=== PATIENT | female | born 1950 | race Caucasian/White ===

== ENCOUNTER 2022-10-24 08:08 | Emergency (ER) | payer MEDICARE, MEDICAID ==
[~2022-10-24] VITALS: Ht 154.9 cm; Wt 80.0 kg
[~2022-10-24 08:08] MED LIST: ALBU108A5 INH; ALBUAER3 INH; ATOR10TA52 PO; AZIT500T66 PO; FLU220IH INH; LEV25T PO; LOSA100T58 PO; METF-372 PO; METH4PAK PO; SITA100T7 PO
[2022-10-24 08:40] VITALS: BP 144/88; PULSE 106; RESP 20; TEMP 97.7; O2SAT 97
[2022-10-24] MEDS ORDERED: DexAMETHasone SOD PHOS 10MG/1ML VIAL INJ IM ONE (09:00)
[2022-10-24] MEDS ORDERED: HYDROcodone-ACET 5/325MG TAB PO ONE (09:00)
[2022-10-24] MEDS ORDERED: TRAM50TA2 PO ×2 (09:09→09:10)
[2022-10-25] MEDS ORDERED: TRAM50TA2 PO (19:30)
== END 2022-10-24 09:24 | disposition home or self-care (01) ==
LOC: ER 08:08
DX: M06.862 Other specified rheumatoid arthritis, left knee (principal); M06.861 Other specified rheumatoid arthritis, right knee; E11.9 Type 2 diabetes mellitus without complications; E78.5 Hyperlipidemia, unspecified; I10 Essential (primary) hypertension; J45.909 Unspecified asthma, uncomplicated
CPT/HCPCS: 96372; 99283; J1100

== ENCOUNTER 2022-10-26 07:29 | Inpatient (IN) | payer MEDICARE, MEDICAID ==
[2022-10-26] VITALS (9 sets, daily range): BP systolic 120–147; BP diastolic 62–78; PULSE 74–106; RESP 16–26; TEMP 98.4–98.9; O2SAT 90–99
[~2022-10-26] VITALS: Ht 154.9 cm; Wt 81.7 kg
[~2022-10-26 07:29] MED LIST changes: +TRAM50TA2 PO
[2022-10-26] MEDS ORDERED: ACETAMINOPHEN 325 MG TAB PO ONE (08:00)
[2022-10-26] MEDS ORDERED: DexAMETHasone SOD PHOS 10MG/1ML VIAL INJ IV ONE (08:00)
[2022-10-26 08:09] LABS: Basophils # (auto) 0.2 10 ^3/uL (0-0.2); Basophils % (auto) 0.9 % (0.0-2.0); Eosinophils # (auto) 0.4 10 ^3/uL (0-0.8); Eosinophils % (auto) 2.2 % (0.0-7.0); Hematocrit 42.1 % (36.0-46.0); Hemoglobin 13.7 g/dL (12.2-16.2); Lymphocytes # (auto) 2.2 10 ^3/uL (0.4-5.4); Lymphocytes % (auto) 11.5 % (10.0-50.0); Mean Corpuscular Hemoglobin 28.1 pg (28.0-32.0); Mean Corpuscular Hgb Conc. 32.6 g/dL (32.0-36.0); Mean Corpuscular Volume 86.2 fL (80.0-100.0); Monocytes % (auto) 5.5 % (0.0-12.0); Neutrophils # (auto) 14.9 10 ^3/uL (1.6-8.6); Neutrophils % (auto) 79.9 % (37.0-80.0); Red Blood Cells 4.88 10^6/uL (4.0-5.20); Red Cell Distribution Width 15.3 % (11.8-14.3); White Blood Cell 18.7 10^3/uL (4.4-10.8)
[2022-10-26 08:25] LABS: Albumin 3.1 g/dL (3.4-5.0); Potassium 3.6 mmol/L (3.5-5.1)
[2022-10-26 08:29] LABS: BUN/Creatinine Ratio 17.6 (10.0-20.0); Bilirubin, Total 1.1 mg/dL (0.2-1.0); Total Protein 7.4 g/dL (6.4-8.2)
[2022-10-26 09:13] LABS: Urine Bacteria NONE SEEN /hpf (None Seen); Urine Blood Negative /uL (Negative); Urine Hyaline Cast FEW /lpf (0 - 2); Urine Specific Gravity 1.023 (1.001-1.035); Urine WBC 68 /hpf (0 - 5)
[2022-10-26] MEDS ORDERED: IPRATROPIUM BROM 0.5 MG/2.5ML INH SOL NEB PRN (10:45)
[2022-10-26] MEDS ORDERED: DEXTROSE (50%) 50ML SYRG IV PRN (10:45)
[2022-10-26] MEDS ORDERED: DOCUSATE SOD 100 MG CAP PO PRN (10:45)
[2022-10-26] MEDS ORDERED: ONDANSETRON HCL 4 MG/2 ML VIAL IV PRN (10:45)
[2022-10-26] MEDS: SODIUM CHLORIDE 0.9% 1,000 ML IV SCH ×2 (11:20→21:33)
[2022-10-26] MEDS: ENOXAPARIN SOD 40 MG/0.4 ML SYRINGE SC SCH (11:21)
[2022-10-26] MEDS: LEVALBUTEROL HCL 1.25 MG/3 ML NEB NEB SCH ×2 (11:32→19:21)
[2022-10-26] MEDS: ACCU-CHEK COMFORT CURVE STRIP VI SCH ×3 (11:42→21:35)
[2022-10-26] MEDS: InsuLIN REG 1unit/0.01ml Soln (100units/ml) SC SCH ×3 (11:43→21:37)
[2022-10-26] MEDS ORDERED: DexAMETHasone SOD PHOS 4 MG/1ML SDV INJ IV SCH (12:00)
[2022-10-26] MEDS: MORPHINE SULFATE INJ 2 MG/ml SYRG IV PRN ×2 (12:06→21:34)
[2022-10-26 13:32] LABS: Creatinine, Urine 194 mg/dL (30.0-125.0); Sodium Urine 24 mmol/L (40-220)
[2022-10-26] MEDS: IPRATROPIUM BROM 0.5 MG/2.5ML INH SOL NEB SCH (19:21)
[2022-10-26] MEDS: ACETYLCYSTEINE 20%(200MG/ML) SOL 4ML NEB SCH (19:22)
[2022-10-26] MEDS ORDERED: guaiFENesin-DM 100/10mg/5ml SYR PO PRN (20:45)
[2022-10-26] MEDS: ATORVASTATIN 20 MG TAB PO SCH (21:34)
[2022-10-27] VITALS (14 sets, daily range): BP systolic 118–155; BP diastolic 55–88; PULSE 65–92; RESP 16–20; TEMP 97.4–98.6; O2SAT 89–100
[2022-10-27] MEDS: IPRATROPIUM BROM 0.5 MG/2.5ML INH SOL NEB SCH ×4 (00:29→18:00)
[2022-10-27] MEDS: ACETYLCYSTEINE 20%(200MG/ML) SOL 4ML NEB SCH ×4 (00:29→18:00)
[2022-10-27] MEDS: LEVALBUTEROL HCL 1.25 MG/3 ML NEB NEB SCH ×4 (00:29→18:00)
[2022-10-27] MEDS: SODIUM CHLORIDE 0.9% 1,000 ML IV SCH ×4 (04:07→22:52)
[2022-10-27] MEDS: ACCU-CHEK COMFORT CURVE STRIP VI SCH ×4 (05:58→21:10)
[2022-10-27] MEDS: LEVOTHYROXINE SODIUM 25 MCG TAB PO SCH (06:05)
[2022-10-27] MEDS: InsuLIN REG 1unit/0.01ml Soln (100units/ml) SC SCH ×4 (06:06→21:25)
[2022-10-27] MEDS: MORPHINE SULFATE INJ 2 MG/ml SYRG IV PRN ×2 (06:08→21:11)
[2022-10-27 06:10] LABS: Basophils # (auto) 0 10 ^3/uL (0-0.2); Basophils % (auto) 0.1 % (0.0-2.0); Eosinophils # (auto) 0 10 ^3/uL (0-0.8); Hematocrit 36.3 % (36.0-46.0); Hemoglobin 11.8 g/dL (12.2-16.2); Lymphocytes # (auto) 2.6 10 ^3/uL (0.4-5.4); Lymphocytes % (auto) 16.3 % (10.0-50.0); Mean Corpuscular Hemoglobin 28.4 pg (28.0-32.0); Mean Corpuscular Hgb Conc. 32.6 g/dL (32.0-36.0); Monocytes # (auto) 0.9 10 ^3/uL (0-1.3); Monocytes % (auto) 5.6 % (0.0-12.0); Neutrophils # (auto) 12.5 10 ^3/uL (1.6-8.6); Red Blood Cells 4.17 10^6/uL (4.0-5.20); Red Cell Distribution Width 15.5 % (11.8-14.3)
[2022-10-27 06:36] LABS: Albumin 2.5 g/dL (3.4-5.0); Calcium 8.3 mg/dL (8.5-10.1); Potassium 4.1 mmol/L (3.5-5.1)
[2022-10-27 06:40] LABS: BUN/Creatinine Ratio 20.2 (10.0-20.0); Bilirubin, Total 0.5 mg/dL (0.2-1.0)
[2022-10-27] MEDS: ENOXAPARIN SOD 40 MG/0.4 ML SYRINGE SC SCH (11:26)
[2022-10-27] MEDS: LOSARTAN POTASSIUM 50 MG TAB PO SCH (11:27)
[2022-10-27] MEDS: DexAMETHasone SOD PHOS 4 MG/1ML SDV INJ IV SCH (11:27)
[2022-10-27] MEDS: PANTOPRAZOLE 40 MG/10 ML VIAL INJ IV SCH (11:28)
[2022-10-27] MEDS ORDERED: cefTRIAXone 1GM/50ML D5W 50 ML IV ONE (12:00)
[2022-10-27] MEDS: ATORVASTATIN 20 MG TAB PO SCH (21:10)
[2022-10-28] VITALS (15 sets, daily range): BP systolic 135–150; BP diastolic 63–83; PULSE 67–106; RESP 14–20; TEMP 97.6–98.6; O2SAT 89–99
[2022-10-28] MEDS: LEVALBUTEROL HCL 1.25 MG/3 ML NEB NEB SCH ×5 (01:39→23:14)
[2022-10-28] MEDS: ACETYLCYSTEINE 20%(200MG/ML) SOL 4ML NEB SCH ×5 (01:39→23:14)
[2022-10-28] MEDS: IPRATROPIUM BROM 0.5 MG/2.5ML INH SOL NEB SCH ×5 (01:39→23:14)
[2022-10-28] MEDS: LEVOTHYROXINE SODIUM 25 MCG TAB PO SCH (06:03)
[2022-10-28] MEDS: ACCU-CHEK COMFORT CURVE STRIP VI SCH ×4 (06:04→21:12)
[2022-10-28] MEDS: InsuLIN REG 1unit/0.01ml Soln (100units/ml) SC SCH ×4 (06:09→21:19)
[2022-10-28] MEDS: cefTRIAXone 1GM/50ML D5W 50 ML IV SCH (09:18)
[2022-10-28] MEDS: DexAMETHasone SOD PHOS 4 MG/1ML SDV INJ IV SCH (09:19)
[2022-10-28] MEDS: SODIUM CHLORIDE 0.9% 1,000 ML IV SCH ×3 (09:19→22:34)
[2022-10-28] MEDS: ENOXAPARIN SOD 40 MG/0.4 ML SYRINGE SC SCH (09:19)
[2022-10-28] MEDS: LOSARTAN POTASSIUM 50 MG TAB PO SCH (09:19)
[2022-10-28] MEDS: PANTOPRAZOLE 40 MG/10 ML VIAL INJ IV SCH (09:20)
[2022-10-28] MEDS ORDERED: ZOLPIDEM TARTRATE 5 MG TAB PO PRN (12:15)
[2022-10-28] MEDS: ATORVASTATIN 20 MG TAB PO SCH (21:11)
[2022-10-29] VITALS (10 sets, daily range): BP systolic 148–163; BP diastolic 71–90; PULSE 53–86; RESP 18; TEMP 97.2–98.5; O2SAT 93–100
[2022-10-29] MEDS: InsuLIN REG 1unit/0.01ml Soln (100units/ml) SC SCH ×2 (06:02→11:43)
[2022-10-29] MEDS: SODIUM CHLORIDE 0.9% 1,000 ML IV SCH (06:21)
[2022-10-29] MEDS: ACCU-CHEK COMFORT CURVE STRIP VI SCH ×2 (06:21→11:43)
[2022-10-29] MEDS: LEVOTHYROXINE SODIUM 25 MCG TAB PO SCH (06:21)
[2022-10-29] MEDS: IPRATROPIUM BROM 0.5 MG/2.5ML INH SOL NEB SCH ×2 (06:47→11:58)
[2022-10-29] MEDS: LEVALBUTEROL HCL 1.25 MG/3 ML NEB NEB SCH ×2 (06:47→11:58)
[2022-10-29] MEDS: ACETYLCYSTEINE 20%(200MG/ML) SOL 4ML NEB SCH ×2 (06:48→11:58)
[2022-10-29] MEDS: DexAMETHasone SOD PHOS 4 MG/1ML SDV INJ IV SCH (08:53)
[2022-10-29] MEDS: cefTRIAXone 1GM/50ML D5W 50 ML IV SCH (08:53)
[2022-10-29] MEDS: ENOXAPARIN SOD 40 MG/0.4 ML SYRINGE SC SCH (08:54)
[2022-10-29] MEDS: LOSARTAN POTASSIUM 50 MG TAB PO SCH (08:55)
[2022-10-29] MEDS ORDERED: METH4PAK PO (11:12)
[2022-10-29] MEDS ORDERED: HYDR-4902 PO (11:12)
[2022-10-29] MEDS ORDERED: LEVO500T91 PO (11:12)
== END 2022-10-29 14:17 | disposition home or self-care (01) | DRG 720 ==
LOC: ER 07:29 → OVERFLOW 10:41 → CENTRAL 12:45
PROVIDERS: ADMIT Family Medicine; ATTEND Family Medicine
DX: A41.9 Sepsis, unspecified organism (principal); J96.01 Acute respiratory failure with hypoxia; J44.1 Chronic obstructive pulmonary disease with (acute) exacerbation; J45.901 Unspecified asthma with (acute) exacerbation; I24.9 Acute ischemic heart disease, unspecified; N30.00 Acute cystitis without hematuria; E11.65 Type 2 diabetes mellitus with hyperglycemia; I10 Essential (primary) hypertension; E78.5 Hyperlipidemia, unspecified; E03.9 Hypothyroidism, unspecified; M06.9 Rheumatoid arthritis, unspecified; J98.11 Atelectasis; Z83.3 Family history of diabetes mellitus; Z85.3 Personal history of malignant neoplasm of breast; Z90.12 Acquired absence of left breast and nipple; Z82.49 Family history of ischemic heart disease and other diseases of the circulatory system; Z79.84 Long term (current) use of oral hypoglycemic drugs; Z79.51 Long term (current) use of inhaled steroids; Z82.5 Family history of asthma and other chronic lower respiratory diseases; Z82.61 Family history of arthritis
CPT/HCPCS: 36415; 71045; 80053; 81001; 82570; 82962; 83605; 83735; 84300; 84484; 85025; 86141; 87040; 87086; 93005; 94640; 97110; 97116; 97163; 97530; C9113; G0378; J0696; J1100; J1815; J2405

== ENCOUNTER 2022-11-15 08:29 | Emergency (ER) | payer MEDICARE, MEDICAID ==
[~2022-11-15] VITALS: Ht 154.9 cm; Wt 69.1 kg
[~2022-11-15 08:29] MED LIST changes: +HYDR-4902 PO; +LEVO500T91 PO
[2022-11-15 08:56] VITALS: BP 101/57; PULSE 105; RESP 18; TEMP 97.7; O2SAT 94
[2022-11-15] MEDS ORDERED: methylPREDNISolone SOD SUCC 40 MG/ML VL IM ONE (09:00)
[2022-11-15] MEDS ORDERED: KETOROLAC TROMETH 30 MG/ML 1ML VIAL IM ONE (09:00)
[2022-11-15] MEDS ORDERED: ONDANSETRON ODT 4 MG TAB PO ONE (09:15)
[2022-11-15] MEDS ORDERED: NAPR-746 PO (09:45)
[2022-11-15] MEDS ORDERED: PRED20TA2 PO (09:45)
== END 2022-11-15 09:52 | disposition home or self-care (01) ==
LOC: ER 08:29
DX: M06.9 Rheumatoid arthritis, unspecified (principal); M25.561 Pain in right knee; M79.642 Pain in left hand; M79.641 Pain in right hand; J45.909 Unspecified asthma, uncomplicated; E11.9 Type 2 diabetes mellitus without complications; E78.5 Hyperlipidemia, unspecified; I10 Essential (primary) hypertension; Z79.899 Other long term (current) drug therapy; Z79.84 Long term (current) use of oral hypoglycemic drugs; Z90.49 Acquired absence of other specified parts of digestive tract; Z98.891 History of uterine scar from previous surgery; Z98.890 Other specified postprocedural states
CPT/HCPCS: 96372; 99284; J1885; J2920; Q0162

== ENCOUNTER 2023-01-22 16:09 | Emergency (ER) | payer MEDICARE, MEDICAID ==
[~2023-01-22] VITALS: Ht 154.9 cm; Wt 72.7 kg
[~2023-01-22 16:09] MED LIST changes: +NAPR-746 PO; +PRED20TA2 PO
[2023-01-22] MEDS ORDERED: DexAMETHasone SOD PHOS 10MG/1ML VIAL INJ IM ONE (17:15)
[2023-01-22 18:01] LABS: Eosinophils # (auto) 0.6 10 ^3/uL (0-0.8); Eosinophils % (auto) 3.7 % (0.0-7.0); Hemoglobin 12.2 g/dL (12.2-16.2); Mean Corpuscular Hemoglobin 28.7 pg (28.0-32.0); Nucleated Red Blood Cells % 0.1 %
[2023-01-22 18:03] LABS: Basophils # (auto) 0.1 10 ^3/uL (0-0.2); Basophils % (auto) 0.7 % (0.0-2.0); Hematocrit 37.5 % (36.0-46.0); Lymphocytes # (auto) 2.5 10 ^3/uL (0.4-5.4); Lymphocytes % (auto) 15.3 % (10.0-50.0); Mean Corpuscular Hgb Conc. 32.6 g/dL (32.0-36.0); Monocytes # (auto) 0.8 10 ^3/uL (0-1.3); Monocytes % (auto) 4.6 % (0.0-12.0); Neutrophils # (auto) 12.5 10 ^3/uL (1.6-8.6); Neutrophils % (auto) 75.7 % (37.0-80.0); Red Blood Cells 4.26 10^6/uL (4.0-5.20); Red Cell Distribution Width 15.6 % (11.8-14.3); White Blood Cell 16.5 10^3/uL (4.4-10.8)
[2023-01-22 18:05] LABS: Alanine Aminotransferase 11 U/L (7-40); Albumin 4.2 g/dL (3.2-4.8); Alkaline Phosphatase 69 U/L (46-116); Anion Gap 8 (5-15); Aspartate Aminotransferase 14 U/L (13-40); BUN/Creatinine Ratio 11.5 (10.0-20.0); Blood Urea Nitrogen 9 mg/dL (9-23); Calcium 9.2 mg/dL (8.5-10.1); Carbon Dioxide 26 mmol/L (20-30); Chloride 105 mmol/L (98-107); Glucose 115 mg/dL (74-106); Potassium 3.8 mmol/L (3.5-5.1); Sodium 139 mmol/L (136-145)
[2023-01-22 18:06] LABS: Bilirubin, Total 0.5 mg/dL (0.2-1.0); Total Protein 7.1 g/dL (5.7-8.2)
[2023-01-22 18:14] LABS: CRP High Sensitivity 5.06 mg/dL (<1.0)
[2023-01-22 19:17] LABS: Erythrocyte Sedimentation Rate 69 mm/hr (0-20)
[2023-01-22 19:37] VITALS: BP 184/78; PULSE 91; RESP 16; O2SAT 91
[2023-01-22] MEDS ORDERED: PRED20TA2 PO (19:44)
== END 2023-01-22 19:59 | disposition home or self-care (01) ==
LOC: ER 16:09 → EDBD 16:09 → ER 19:59
DX: M06.8A Other specified rheumatoid arthritis, other specified site (principal); I10 Essential (primary) hypertension; E11.9 Type 2 diabetes mellitus without complications; J45.909 Unspecified asthma, uncomplicated; E78.5 Hyperlipidemia, unspecified; Z85.9 Personal history of malignant neoplasm, unspecified; Z90.49 Acquired absence of other specified parts of digestive tract; Z98.890 Other specified postprocedural states; Z79.1 Long term (current) use of non-steroidal anti-inflammatories (NSAID); Z79.899 Other long term (current) drug therapy
CPT/HCPCS: 36415; 80053; 85025; 85652; 86141; 96372; 99283; J1100

== ENCOUNTER 2023-06-11 01:06 | Inpatient (IN) | payer MEDICARE, MEDICAID ==
[~2023-06-11] VITALS: Ht 154.9 cm; Wt 66.1 kg
[2023-06-11 02:45] VITALS: RESP 40; O2SAT 93
[2023-06-11] MEDS: PIPERACILLIN-TAZOB 3.375GM 100 ML IV ONE (03:16)
[2023-06-11] MEDS: methylPREDNISolone SOD SUCC 125 MG/2 ML VL IV ONE (03:16)
[2023-06-11 03:42] LABS: Alanine Aminotransferase 27 U/L (7-40); Albumin 3.7 g/dL (3.2-4.8); Alkaline Phosphatase 136 U/L (46-116); Anion Gap 5 (5-15); Aspartate Aminotransferase 17 U/L (13-40); BUN/Creatinine Ratio 17.6 (10.0-20.0); Blood Urea Nitrogen 12 mg/dL (9-23); Calcium 9.3 mg/dL (8.7-10.4); Carbon Dioxide 34 mmol/L (20-30); Chloride 100 mmol/L (98-107); Glucose 125 mg/dL (74-106); Magnesium 1.8 mg/dL (1.6-2.6); Sodium 139 mmol/L (136-145)
[2023-06-11 03:43] LABS: Basophils # (auto) 0.1 10 ^3/uL (0-0.2); Bilirubin, Total 0.9 mg/dL (0.2-1.0); Eosinophils # (auto) 0.3 10 ^3/uL (0-0.8); Eosinophils % (auto) 1.9 % (0.0-7.0); Hemoglobin 10.5 g/dL (12.2-16.2); Lymphocytes % (auto) 19.6 % (10.0-50.0); Mean Corpuscular Hemoglobin 28.6 pg (28.0-32.0); Mean Corpuscular Hgb Conc. 31.8 g/dL (32.0-36.0); Mean Corpuscular Volume 89.9 fL (80.0-100.0); Monocytes # (auto) 0.1 10 ^3/uL (0-1.3); Monocytes % (auto) 0.4 % (0.0-12.0); Neutrophils # (auto) 11.8 10 ^3/uL (1.6-8.6); Neutrophils % (auto) 77.1 % (37.0-80.0); Nucleated Red Blood Cells % 0.1 %; Red Blood Cells 3.67 10^6/uL (4.0-5.20); Red Cell Distribution Width 18.2 % (11.8-14.3); Total Protein 6.8 g/dL (5.7-8.2); White Blood Cell 15.3 10^3/uL (4.4-10.8)
[2023-06-11 03:59] LABS: INR 0.98 (0.9-1.15); Partial Thromboplastin Time 26.9 SEC (24.5-34.5); Prothrombin Time 10.3 sec (9.3-11.8)
[2023-06-11 04:31] LABS: COVID19 ANTIGEN SOFIA FIA NEGATIVE (NEGATIVE)
[2023-06-11] MEDS: IOHEXOL 350 MG/ML 100ML IJ ONE (06:01)
[2023-06-11] MEDS ORDERED: DEXTROSE (50%) 50ML SYRG IV PRN (06:15)
[2023-06-11] MEDS ORDERED: NITROGLYCERIN 0.4 MG SL TAB SL PRN (06:15)
[2023-06-11] MEDS ORDERED: ACETAMINOPHEN 325 MG TAB PO PRN ×2 (06:15→06:45)
[2023-06-11] MEDS ORDERED: ONDANSETRON HCL 4 MG/2 ML VIAL IV PRN ×2 (06:15→06:45)
[2023-06-11] MEDS ORDERED: MORPHINE SULFATE INJ 2 MG/ml SYRG IV PRN (06:15)
[2023-06-11] MEDS: LEVOTHYROXINE SODIUM 25 MCG TAB PO SCH (07:00)
[2023-06-11 07:20] LABS: Urine Bacteria NONE SEEN /hpf (None Seen); Urine Blood Negative /uL (Negative); Urine Clarity Clear (Clear); Urine Color Colorless (Yellow); Urine Protein, UAD 2+ (Negative); Urine Specific Gravity 1.022 (1.001-1.035); Urine Urobilinogen Normal (Negative); Urine WBC 8 /hpf (0 - 5); Urine pH 6.5 (5.0-8.0)
[2023-06-11 08:37] VITALS: RESP 15; O2SAT 95
[2023-06-11] MEDS: cefTRIAXone 1GM/50ML D5W 50 ML IV SCH (08:52)
[2023-06-11] MEDS: methylPREDNISolone SOD SUCC 40 MG/ML VL IV SCH (09:33)
[2023-06-11] MEDS: AZITHROMYCIN 500MG/ 250ML 250 ML IV SCH (09:33)
[2023-06-11] MEDS: LOSARTAN POTASSIUM 50 MG TAB PO SCH (09:34)
[2023-06-11] MEDS: METOPROLOL TARTRATE 25 MG TAB PO SCH (09:34)
[2023-06-11] MEDS: POTASSIUM CHL 20 Meq TABLET PO ONE (11:45)
[2023-06-11] MEDS: FUROSEMIDE 20 MG/2 ML VIAL IV ONE (11:45)
[2023-06-11] MEDS ORDERED: HYDROcodone-ACET 5/325MG TAB PO PRN (12:00)
[2023-06-11] MEDS: InsuLIN REG 1unit/0.01ml Soln (100units/ml) SC SCH (12:00)
[2023-06-11] MEDS: ACCU-CHEK COMFORT CURVE STRIP VI SCH (12:14)
[2023-06-11 19:25] VITALS: PULSE 104; RESP 20; O2SAT 98
[2023-06-11] MEDS: ATORVASTATIN 20 MG TAB PO SCH (22:45)
[2023-06-12] VITALS (8 sets, daily range): BP systolic 116–143; BP diastolic 65–77; PULSE 72–109; RESP 16–20; TEMP 97.7–98.4; O2SAT 90–96
[2023-06-12 06:06] LABS: Basophils # (auto) 0 10 ^3/uL (0-0.2); Eosinophils # (auto) 0 10 ^3/uL (0-0.8); Eosinophils % (auto) 0.1 % (0.0-7.0); Hematocrit 30.1 % (36.0-46.0); Hemoglobin 9.7 g/dL (12.2-16.2); Lymphocytes # (auto) 1.2 10 ^3/uL (0.4-5.4); Lymphocytes % (auto) 11.5 % (10.0-50.0); Mean Corpuscular Hemoglobin 29.1 pg (28.0-32.0); Mean Corpuscular Hgb Conc. 32.3 g/dL (32.0-36.0); Mean Corpuscular Volume 90.1 fL (80.0-100.0); Monocytes # (auto) 0 10 ^3/uL (0-1.3); Monocytes % (auto) 0.2 % (0.0-12.0); Neutrophils % (auto) 88.2 % (37.0-80.0); Nucleated Red Blood Cells % 0.1 %; Red Blood Cells 3.34 10^6/uL (4.0-5.20); Red Cell Distribution Width 17.9 % (11.8-14.3); White Blood Cell 10.3 10^3/uL (4.4-10.8)
[2023-06-12 06:29] LABS: Alanine Aminotransferase 20 U/L (7-40); Albumin 3.4 g/dL (3.2-4.8); Alkaline Phosphatase 123 U/L (46-116); Anion Gap 3 (5-15); Aspartate Aminotransferase 15 U/L (13-40); Bilirubin, Total 0.5 mg/dL (0.2-1.0); Blood Urea Nitrogen 19 mg/dL (9-23); Calcium 8.8 mg/dL (8.5-10.1); Carbon Dioxide 37 mmol/L (20-30); Chloride 100 mmol/L (98-107); Glucose 192 mg/dL (74-106); Potassium 4.2 mmol/L (3.5-5.1); Sodium 140 mmol/L (136-145)
[2023-06-12] MEDS: POTASSIUM CHL 20 Meq TABLET PO SCH (10:09)
[2023-06-12] MEDS: FUROSEMIDE 20 MG/2 ML VIAL IV SCH (10:12)
[2023-06-12] MEDS ORDERED: HYDR-4902 PO (15:40)
[2023-06-12] MEDS ORDERED: ATO40T PO (15:40)
[2023-06-12] MEDS ORDERED: LOSA50TA46 PO (15:42)
[2023-06-12] MEDS ORDERED: IBUP-1456 PO (15:50)
[2023-06-12] MEDS ORDERED: MET25T PO (15:50)
[2023-06-12] MEDS ORDERED: PANT40T PO (15:50)
[2023-06-12] MEDS ORDERED: PRED10TA PO (15:50)
[2023-06-12] MEDS ORDERED: FURO20TA3 PO (15:50)
[2023-06-12] MEDS ORDERED: POTA10TA51 PO (15:50)
[2023-06-12] MEDS ORDERED: METH2.5T PO (15:50)
[2023-06-12] MEDS ORDERED: AMLO1TAB22 PO (15:50)
[2023-06-12] MEDS ORDERED: HYDR200T36 PO (15:50)
[2023-06-12] MEDS ORDERED: FOLI-119 PO (15:50)
[2023-06-12] MEDS ORDERED: CHOL4POW33 PO (15:50)
[2023-06-12] MEDS: methylPREDNISolone SOD SUCC 40 MG/ML VL IV SCH (21:49)
[2023-06-13] VITALS (8 sets, daily range): BP systolic 129–144; BP diastolic 57–88; PULSE 75–99; RESP 16–20; TEMP 97.7–98.8; O2SAT 91–97
[2023-06-13 06:32] LABS: Chloride 100 mmol/L (98-107); Potassium 4.4 mmol/L (3.5-5.1); Sodium 140 mmol/L (136-145)
[2023-06-13 06:33] LABS: Anion Gap 2 (5-15); Calcium 8.8 mg/dL (8.5-10.1); Carbon Dioxide 38 mmol/L (20-30)
[2023-06-13 06:38] LABS: BUN/Creatinine Ratio 26.9 (10.0-20.0); Blood Urea Nitrogen 21 mg/dL (9-23); Glucose 246 mg/dL (74-106)
[2023-06-13 08:48] LABS: Hepatitis B Surface Antigen Negative (Negative)
[2023-06-13 09:10] LABS: Hepatitis C Antibody Negative (Negative)
[2023-06-14] VITALS (12 sets, daily range): BP systolic 115–141; BP diastolic 66–73; PULSE 62–105; RESP 18–22; TEMP 97.5–98; O2SAT 86–96
[2023-06-14] MEDS: predniSONE 20 MG TAB PO SCH (10:30)
[2023-06-14] MEDS: AZITHROMYCIN 250 MG TAB PO SCH (10:33)
[2023-06-14 10:54] LABS: Basophils # (auto) 0 10 ^3/uL (0-0.2); Basophils % (auto) 0.1 % (0.0-2.0); Eosinophils # (auto) 0.6 10 ^3/uL (0-0.8); Eosinophils % (auto) 4.6 % (0.0-7.0); Hematocrit 35.2 % (36.0-46.0); Hemoglobin 10.9 g/dL (12.2-16.2); Lymphocytes # (auto) 1.7 10 ^3/uL (0.4-5.4); Lymphocytes % (auto) 13.5 % (10.0-50.0); Mean Corpuscular Volume 90.5 fL (80.0-100.0); Monocytes # (auto) 0 10 ^3/uL (0-1.3); Monocytes % (auto) 0.4 % (0.0-12.0); Neutrophils # (auto) 10.4 10 ^3/uL (1.6-8.6); Neutrophils % (auto) 81.4 % (37.0-80.0); Nucleated Red Blood Cells % 0.1 %; Red Blood Cells 3.89 10^6/uL (4.0-5.20); Red Cell Distribution Width 18.1 % (11.8-14.3); White Blood Cell 12.8 10^3/uL (4.4-10.8)
[2023-06-14 11:07] LABS: Chloride 100 mmol/L (98-107); Potassium 3.6 mmol/L (3.5-5.1); Sodium 139 mmol/L (136-145)
[2023-06-14 11:08] LABS: Anion Gap 2 (5-15); Carbon Dioxide 37 mmol/L (20-30)
[2023-06-14 11:09] LABS: Calcium 8.4 mg/dL (8.5-10.1)
[2023-06-14 11:13] LABS: BUN/Creatinine Ratio 24.6 (10.0-20.0); Blood Urea Nitrogen 15 mg/dL (9-23); Glucose 200 mg/dL (74-106)
[2023-06-14] MEDS: IPRATROPIUM BROM 0.5 MG/2.5ML INH SOL NEB SCH (12:20)
[2023-06-14] MEDS ORDERED: LEVO500T91 PO (14:48)
[2023-06-14] MEDS ORDERED: IPRA0.00 IN (14:48)
== END 2023-06-14 19:35 | disposition home or self-care (01) | DRG 720 ==
LOC: EDBD 01:06 → ER 01:06 → TELE 06:20 → TELE-CENTR 06-12 03:14 → CENTRAL 06-13 22:22
PROVIDERS: ADMIT Internal Medicine Pulmonary Disease; ATTEND Internal Medicine Pulmonary Disease
DX: A41.9 Sepsis, unspecified organism (principal); J96.21 Acute and chronic respiratory failure with hypoxia; I50.31 Acute diastolic (congestive) heart failure; J15.69 Pneumonia due to other Gram-negative bacteria; I27.20 Pulmonary hypertension, unspecified; J15.9 Unspecified bacterial pneumonia; I11.0 Hypertensive heart disease with heart failure; E03.9 Hypothyroidism, unspecified; E11.9 Type 2 diabetes mellitus without complications; D64.9 Anemia, unspecified; E78.5 Hyperlipidemia, unspecified; J84.10 Pulmonary fibrosis, unspecified; J45.909 Unspecified asthma, uncomplicated; Z90.49 Acquired absence of other specified parts of digestive tract; Z79.4 Long term (current) use of insulin
CPT/HCPCS: 36415; 36600; 71045; 71275; 80048; 80053; 81001; 82805; 82962; 83036; 83735; 83880; 84443; 84484; 85025; 85379; 85610; 85730; 86803; 87086; 87340; 87426; 93005; 93306; 94640; 96365; 96366; 96367; 96368; 96375; 97110; 97116; 97163; 97530; 99291; G0378; J1815; J2543